=== PATIENT | male | born 1960 | race Caucasian/White ===

== ENCOUNTER 2019-11-13 12:00 | Outpatient (CLI) | payer BC, SELFPAY ==
--- NOTE | 2019-11-13 12:00 | CT_ITS ---
WS: [id number] CT ABDOMEN AND PELVIS NONCONTRAST HISTORY: ABD PAIN, RIGHT lower quadrant pain for 3 weeks. Diarrhea and nausea. TECHNIQUE: Imaging performed through the abdomen and pelvis. Coronal and sagittal reformats are submi tted. All CT scans at [facility] use at least one of these dose optimization techniques: automated exposure control; mA and/or kV adjustment per patient size (includes targeted exams where d ose is matched to clinical indication); or iterative reconstruction. DLP: 1213.04 mGycm COMPARISON: None available. Lower thorax: Lung bases are clear. No hiatal hernia. Liver: Variable density throughout the liver. Geographic areas of decreased attenuation. Favor this i s probably due to hepatic steatosis with areas of sparing. No bile duct dilatation. Gallbladder: Slightly contracted gallbladder. No adjacent inflammation. Pancreas: Normal. Spleen: Normal. Adrenal glands: Normal. Right kidney: Normal size with no stones, masses or atrophy. Left kidney: Normal size with no stones, mass or atrophy. Abdominal aorta and IVC are unremarkable. No free fluid, intraperitoneal air or significant lymphadenopathy. GI tract: Normal appendix. No GI tract obstruction. No significant diverticular disease. No mucosal t hickening or inflammatory changes of throughout the GI tract. Small bowel loops are normal. Abdominal wall: Small fat-containing umbilical hernia. Pelvis: Urinary bladder is minimally well distended. No free fluid or adenopathy. No inguinal hernia. Osseous structures: Unremarkable. CT/CT abdomen pelvis wo con [id number] IMPRESSION: 1. No acute abdominal or pelvic abnormalities. 2. Normal appendix. 3. No renal calcifications or obstruction. 4. No significant diverticular disease. 5. Variable density throughout the liver. Favor this is probably related to he patic steatosis with areas of sparing. Recommend follow-up liver ultrasound to confirm there is no mass and the variability is due to hepatic steatosis.
[2019-11-13] MEDS: iohexol 300 mg/mL 50 mL Btl PO (13:48)
== END 2019-11-13 12:01 | disposition home or self-care (01) ==
LOC: RADWPI 12:06
PROVIDERS: PCP Nurse Practitioner Family; Visit Provider Nurse Practitioner Family
DX: K42.9 Umbilical hernia without obstruction or gangrene (principal); K76.9 Liver disease, unspecified; R10.31 Right lower quadrant pain
CPT/HCPCS: 74176

== ENCOUNTER → 2025-02-26 08:47 | Outpatient (BNVA) | payer OTHER, BC, SELFPAY | PROVIDERS: PCP Nurse Practitioner Family; Visit Provider Specialist | DX: M17.12 Unilateral primary osteoarthritis, left knee (principal) | CPT/HCPCS: 73560; 73565; 99204 ==

== ENCOUNTER 2025-03-03 08:30 | Outpatient (CLI) | payer OTHER, SELFPAY ==
--- NOTE | 2025-03-03 08:45 | MR_ITS ---
WS: [id number] MRI LEFT KNEE HISTORY: left knee pain COMPARISON: Radiographs 02/26/2025 Anterior cruciate ligament: Intact. Posterior cruciate ligament: Intact. Medial collateral ligament: Intact. Posterior lateral corner structures: Intact. Medial menisci: Intact. Normal signal, size and shape. Lateral meniscus: Intact. Normal signal, size and shape. Extensor mechanism: Distal quadriceps tendon and patellar tendons are intact. Fluid and soft tissue: There is a small suprapatellar joint effusion. There are a few broad bands of decreased signal within the joint effusion suggesting plica. No Glez's cyst. Osseous and articular structures: Patellofemoral compartment: Very mild narrowing of patellofemoral compartment. No marrow edema or fracture. Medial compartment: Minimal fissuring of the cartilage. No full-thickness defects. No fracture. There is a small osteochondral defect involving the posterior tibial plateau. Osteochondral defect measures 6.5 mm. Just deep to the osteochondral lesion there is a small amount of increased marrow edema. Lateral compartment: Very mild narrowing of the lateral compartment with no underlying marrow edema or fracture. MR/MR knee LT con* [id number] IMPRESSION: 1. No ACL or meniscal tear. 2. Well-defined bands of soft tissue in the suprapatellar effusion. Consistent with plica syndrome. 3. Mild tricompartment joint space narrowing. 4. Osteochondral defect, 6.5 mm, involving the posterior medial tibial plateau . There is a very small amount of associated marrow edema deep to the osteochon dral lesion.
== END 2025-03-03 08:31 | disposition home or self-care (01) ==
PROVIDERS: PCP Nurse Practitioner Family; Visit Provider Specialist
DX: M19.072 Primary osteoarthritis, left ankle and foot (principal); M79.89 Other specified soft tissue disorders; R93.6 Abnormal findings on diagnostic imaging of limbs; M25.462 Effusion, left knee
CPT/HCPCS: 73721

== ENCOUNTER → 2025-04-09 08:46 | Outpatient (BNVA) | payer OTHER, SELFPAY | PROVIDERS: PCP Nurse Practitioner Family; Visit Provider Specialist | DX: M17.11 Unilateral primary osteoarthritis, right knee (principal) | CPT/HCPCS: 73560; 73565; 99214 ==

== ENCOUNTER 2025-07-01 20:03 | Outpatient (CLI) | payer OTHER, SELFPAY | END 2025-07-01 20:04 | disposition home or self-care (01) | LOC: SLEEP 20:03 | PROVIDERS: PCP Nurse Practitioner Family; Visit Provider Internal Medicine Pulmonary Disease | DX: G47.33 Obstructive sleep apnea (adult) (pediatric) (principal) | CPT/HCPCS: 95811 ==

== ENCOUNTER 2025-08-29 06:19 | Outpatient (CLI) | payer OTHER, SELFPAY ==
--- NOTE | 2025-08-29 06:28 | US_ITS ---
WS: [id number] RIGHT UPPER QUADRANT ULTRASOUND HISTORY: Elevated Liver Enzymes COMPARISON: None available. Liver: 18.4 cm in length. Mildly enlarged heterogeneous liver. Deep portions of the liver are not well visualized due to steatosis. No intrahepatic duct dilatation. Portal Vein: Normal hepatopetal flow with monophasic waveform. Gallbladder: Normally distended gallbladder with no stones or wall thickening. CBD: 0.4 cm Pancreas: Poorly visualized. Small portion of the head is identified and normal. Right kidney: 11.5 cm in length. Normal size and echogenicity. No hydronephrosis or mass. Aorta and IVC: Unremarkable abdominal aorta and IVC. No ascites. US/US abdomen limited [id number] IMPRESSION: 1. Mild hepatomegaly with at least moderate hepatic steatosis. 2. Negative gallbladder.
== END 2025-08-29 06:20 | disposition home or self-care (01) ==
LOC: RAD 06:20
PROVIDERS: PCP Nurse Practitioner Family; Visit Provider Nurse Practitioner
DX: R74.01 Elevation of levels of liver transaminase levels (principal); K76.0 Fatty (change of) liver, not elsewhere classified; R16.0 Hepatomegaly, not elsewhere classified
CPT/HCPCS: 76705